=== PATIENT | male | born 1995 | race Native Hawaiian/Other Pacific Islander ===

== ENCOUNTER 2021-04-18 01:52 | Emergency (ER) | payer BC ==
[~2021-04-18] VITALS: Ht 182.9 cm; Wt 81.8 kg
[2021-04-18 01:52] VITALS: TEMP 98.1
[2021-04-18 02:16] LABS: BASO % 0.3 % (0.0-2.0); EOS # 0.1 K/mm3 (0.0-0.7); EOS % 1.2 % (0-4.0); GRAN # 3.3 K/mm3 (1.4-6.5); GRAN % 43.3 % (42.2-75.2); HEMATOCRIT 40.4 % (42.0-52.0); HEMOGLOBIN 13.4 g/dl (13.5-18.0); LYMPH # 3.7 K/mm3 (1.2-3.4); LYMPH % 49.2 % (20.0-51.0); MEAN CELL VOLUME 96 fl (80.0-100.0); MEAN CORPUSCULAR HEMOGLOBIN 32 pg (27.0-31.0); MEAN CORPUSCULAR HGB CONC 33 g/dl (33.0-37.0); MEAN PLATELET VOLUME 9.1 fl (7.4-10.4); MONO # 0.4 K/mm3 (0.1-0.6); MONO % 5.7 % (1.7-9.3); PLATELET COUNT 283 K/mm3 (130-400); RED BLOOD COUNT 4.23 M/mm3 (4.20-5.60); REDCELL DISTRIBUTION WIDTH-CV 11.1 % (11.5-14.5)
[2021-04-18 02:20] VITALS: BP 170/81; PULSE 90
[2021-04-18 02:22] LABS: PROTHROMBIN TIME 11.6 SECONDS (9.7-12.8)
[2021-04-18 02:47] LABS: ALBUMIN 4.4 gm/dL (3.5-5.0); BILIRUBIN,TOTAL 0.4 mg/dL (0.2-1.2); CALCIUM 8.5 mg/dL (8.4-10.2); CREATININE, serum 1.52 mg/dL (0.72-1.25); POTASSIUM 3.3 mmol/L (3.5-4.5); TOTAL PROTEIN 7.4 gm/dL (6.2-8.1)
== END 2021-04-18 02:30 | disposition short-term general hospital (02) ==
LOC: COL.ER 01:52
PROVIDERS: Emergency Medicine
DX: S11.93XA Puncture wound without foreign body of unspecified part of neck, initial encounter (principal); S31.139A Puncture wound of abdominal wall without foreign body, unspecified quadrant without penetration into peritoneal cavity, initial encounter; Z20.822 Contact with and (suspected) exposure to COVID-19; W34.00XA Accidental discharge from unspecified firearms or gun, initial encounter
CPT/HCPCS: J3010